=== PATIENT | female | born 1990 | race Caucasian/White ===

== ENCOUNTER 2019-07-01 01:27 | Observation (INO) | payer MEDICAID ==
[~2019-07-01] VITALS: Ht 160 cm; Wt 66.2 kg
[2019-07-01] MEDS ORDERED: PREN1TAB78 PO (02:21)
[2019-07-01] MEDS ORDERED: LACTATED RINGERS 1,000 ML IV NR (02:53)
[2019-07-01] MEDS ORDERED: LACTATED RINGERS 1,000 ML IV SCH (02:53)
[2019-07-01] MEDS: TERBUTALINE SULFATE 1MG/ML VIAL SUBCUT PRN ×2 (04:24→05:15)
== END 2019-07-01 07:10 | disposition home or self-care (01) ==
LOC: 8 EST LDRP 01:27
PROVIDERS: ADMIT Obstetrics & Gynecology; ATTEND Obstetrics & Gynecology
DX: O26.893 Other specified pregnancy related conditions, third trimester (principal); R10.9 Unspecified abdominal pain; M54.9 Dorsalgia, unspecified; Z3A.34 34 weeks gestation of pregnancy
CPT/HCPCS: 96372; 99281; G0378; J3105

== ENCOUNTER 2021-10-03 16:25 | Emergency (ER) | payer MEDICAID ==
[~2021-10-03] VITALS: Ht 157.5 cm; Wt 70.0 kg
[~2021-10-03 16:25] MED LIST: PREN1TAB78 PO
[2021-10-03] MEDS ORDERED: ACETAMINOPHEN 325MG TABLET PO PRN (16:45)
[2021-10-03 16:56] LABS: BASOPHILS % 0.8 % (0.0-2.0); HEMATOCRIT. 39.6 % (36.0-48.0); HEMOGLOBIN. 13.3 g/dL (12.0-16.0); LYMPHOCYTES % 26.7 % (20.0-50.0); MEAN CORPUSCULAR HEMOGLOBIN 29.1 pg (28.0-32.0); MEAN CORPUSCULAR VOLUME 86.4 fL (81.0-99.0); MEAN PLATELET VOLUME 6.9 fl (7.4-10.4); MONOCYTES % 6.2 % (2.0-8.0); NEUTROPHILS % 64.3 % (40.0-76.0); PLATELET 267 x1000/uL (130-400); RED BLOOD CELL COUNT 4.58 mill/uL (4.2-5.4); RED CELL DISTRIBUTION WIDTH 13.1 % (11.6-14.6)
[2021-10-03 17:12] LABS: CHLORIDE 106 mEq/L (98-107)
[2021-10-03 17:17] LABS: CLARITY URINE CLEAR (CLEAR); COLOR URINE YELLOW (YELLOW); KETONES URINE NEGATIVE (NEGATIVE); LEUKOCYTE ESTERASE URINE TRACE (NEGATIVE); NITRITE URINE NEGATIVE (NEGATIVE); OCCULT BLOOD URINE NEGATIVE (NEGATIVE); PROTEIN URINE NEGATIVE (NEGATIVE); SPECIFIC GRAVITY URINE 1.014 (1.005-1.030)
[2021-10-03 17:36] LABS: B-HCG QUANTITATIVE 5040 mIU/mL (<3)
[2021-10-03 20:50] VITALS: BP 116/70
== END 2021-10-03 21:00 | disposition home or self-care (01) ==
LOC: ER 16:25
DX: O26.891 Other specified pregnancy related conditions, first trimester (principal); M54.59 Other low back pain; O20.9 Hemorrhage in early pregnancy, unspecified; Z3A.09 9 weeks gestation of pregnancy
CPT/HCPCS: 36415; 76801; 76857; 80053; 81003; 84702; 85025; 86850; 86900; 99284

== ENCOUNTER 2021-10-05 17:00 | Emergency (ER) | payer MEDICAID ==
[~2021-10-05] VITALS: Ht 160 cm; Wt 75.0 kg
[2021-10-05 20:00] LABS: BASOPHILS % 0.9 % (0.0-2.0); EOSINOPHILS % 1.7 % (0.0-5.0); HEMATOCRIT. 40.9 % (36.0-48.0); HEMOGLOBIN. 13.9 g/dL (12.0-16.0); LYMPHOCYTES % 28.4 % (20.0-50.0); MEAN CORPUSCULAR HEMOGLOBIN 29.6 pg (28.0-32.0); MEAN CORPUSCULAR VOLUME 87.3 fL (81.0-99.0); MEAN PLATELET VOLUME 7.1 fl (7.4-10.4); MONOCYTES % 6.4 % (2.0-8.0); NEUTROPHILS % 62.6 % (40.0-76.0); PLATELET 248 x1000/uL (130-400); RED BLOOD CELL COUNT 4.68 mill/uL (4.2-5.4); RED CELL DISTRIBUTION WIDTH 12.7 % (11.6-14.6)
[2021-10-05 20:08] LABS: CHLORIDE 106 mEq/L (98-107)
[2021-10-05 20:30] LABS: B-HCG QUANTITATIVE 3967 mIU/mL (<3)
[2021-10-05 22:06] VITALS: BP 130/75
== END 2021-10-05 22:06 | disposition home or self-care (01) ==
LOC: ER 17:00
DX: O02.1 Missed abortion (principal)
CPT/HCPCS: 36415; 76801; 80053; 84702; 85025; 99284

== ENCOUNTER 2021-10-18 19:12 | Inpatient (IN) | payer MEDICAID ==
[~2021-10-18] VITALS: Ht 152.4 cm; Wt 67.8 kg
[2021-10-18] MEDS ORDERED: IBUPROFEN 400MG TABLET PO ONE (21:30)
[2021-10-18 21:42] LABS: BASOPHILS % 0.9 % (0.0-2.0); EOSINOPHILS % 2.3 % (0.0-5.0); HEMATOCRIT. 38.4 % (36.0-48.0); HEMOGLOBIN. 13.1 g/dL (12.0-16.0); LYMPHOCYTES % 31.4 % (20.0-50.0); MEAN CORPUSCULAR HEMOGLOBIN 29.6 pg (28.0-32.0); MEAN CORPUSCULAR VOLUME 86.7 fL (81.0-99.0); MEAN PLATELET VOLUME 7.1 fl (7.4-10.4); MONOCYTES % 7.4 % (2.0-8.0); PLATELET 269 x1000/uL (130-400); RED BLOOD CELL COUNT 4.43 mill/uL (4.2-5.4); RED CELL DISTRIBUTION WIDTH 12.8 % (11.6-14.6)
[2021-10-18 21:48] LABS: CHLORIDE 105 mEq/L (98-107)
[2021-10-18 21:53] LABS: PARTIAL THROMBOPLASTIN TIME 27.4 sec (23.4-31.0); PROTHROMBIN TIME 10.7 sec (9.6-11.0)
[2021-10-18 21:58] LABS: HCG SCREEN POSITIVE
[2021-10-18] MEDS ORDERED: ENOXAPARIN 80MG/0.8ML SYR SUBCUT ONE (23:15)
[2021-10-19] MEDS ORDERED: ONDANSETRON HCL 4MG/2ML INJ IV PRN (00:15)
[2021-10-19] MEDS ORDERED: ACETAMINOPHEN 325MG TABLET PO PRN (00:15)
[2021-10-19] MEDS: ENOXAPARIN 80MG/0.8ML SYR SUBCUT SCH ×2 (01:30→14:50)
[2021-10-19 11:00] VITALS: BP 124/67
[2021-10-19 11:56] VITALS: BP 124/67
[2021-10-19] MEDS: ACETAMINOPHEN 325MG TABLET PO PRN ×2 (12:21→21:11)
[2021-10-19] MEDS ORDERED: PNEUMOCOCCAL 23-VAL P-SAC VAC 0.5 ML IM ONE (15:00)
[2021-10-19 16:00] VITALS: BP 108/55
[2021-10-19 20:00] VITALS: BP 130/77
[2021-10-20] VITALS: BP 114/60
[2021-10-20] MEDS: ENOXAPARIN 80MG/0.8ML SYR SUBCUT SCH ×2 (02:06→14:21)
[2021-10-20 04:00] VITALS: BP 114/60
[2021-10-20 08:00] VITALS: BP 110/58
[2021-10-20 12:00] VITALS: BP 115/60
[2021-10-20] MEDS ORDERED: XAR15 PO (14:23)
[2021-10-20] MEDS ORDERED: IBUP-2028 PO (14:23)
[2021-10-20] MEDS ORDERED: RIVA20TA PO (14:23)
[2021-10-20 15:20] VITALS: BP 115/50
== END 2021-10-20 16:26 | disposition home or self-care (01) | DRG 566 ==
LOC: ER 19:12 → MICUSO 10-19 00:05 → SUPCPDRO 10-19 00:06 → 6EST 10-19 10:46
PROVIDERS: ADMIT Internal Medicine; ATTEND Internal Medicine
DX: O22.31 Deep phlebothrombosis in pregnancy, first trimester (principal); I82.A12 Acute embolism and thrombosis of left axillary vein; I82.612 Acute embolism and thrombosis of superficial veins of left upper extremity; Z79.899 Other long term (current) drug therapy; Z98.891 History of uterine scar from previous surgery; Z3A.00 Weeks of gestation of pregnancy not specified
CPT/HCPCS: 36415; 73080; 80053; 84702; 84703; 85025; 90732; 93005; 93971; 99285; J1650

== ENCOUNTER 2024-09-05 15:04 | Emergency (ER) | payer SELFPAY ==
[~2024-09-05] VITALS: Ht 165.1 cm; Wt 69.0 kg
[~2024-09-05 15:04] MED LIST changes: +IBUP-2028 PO; +RIVA20TA PO; +XAR15 PO
[2024-09-05 15:13] VITALS: O2SAT 98
[2024-09-05 15:45] LABS: BASOPHILS % 0.6 % (0.0-2.0); EOSINOPHILS % 0.7 % (0.0-5.0); HEMATOCRIT. 40.3 % (36.0-48.0); HEMOGLOBIN. 13.6 g/dL (12.0-16.0); LYMPHOCYTES % 15.5 % (20.0-50.0); MEAN CORPUSCULAR HEMOGLOBIN 29.8 pg (28.0-32.0); MEAN CORPUSCULAR HGB CONC 33.9 g/dL (31.0-37.0); MEAN PLATELET VOLUME 7.6 fl (7.4-10.4); MONOCYTES % 5.4 % (2.0-8.0); NEUTROPHILS % 77.8 % (40.0-76.0); PLATELET 274 x1000/uL (130-400); RED BLOOD CELL COUNT 4.57 mill/uL (4.2-5.4); RED CELL DISTRIBUTION WIDTH 12.5 % (11.6-14.6); WHITE BLOOD COUNT 10.6 x1000/uL (4.5-11.0)
[2024-09-05 15:52] LABS: CHLORIDE 104 mEq/L (98-107); POTASSIUM 3.5 mEq/L (3.5-5.1); SODIUM 141 mEq/L (136-145)
[2024-09-05 15:53] LABS: CALCIUM 9.8 mg/dL (8.7-10.4); CARBON DIOXIDE 26 mEq/L (21-32)
[2024-09-05 15:58] LABS: CREATININE 0.6 mg/dL (0.6-1.0); GLUCOSE 103 mg/dL (70-105); UREA NITROGEN BLOOD 7 mg/dL (9-23)
[2024-09-05 16:00] LABS: ALANINE AMINOTRANSFERASE 18 IU/L (10-49); ALBUMIN 4.5 g/dL (3.2-4.8); ASPARTATE AMINOTRANSFERASE 19 IU/L (<34); BILIRUBIN DIRECT 0.2 mg/dL (<=3.0)
[2024-09-05 16:01] LABS: BILIRUBIN TOTAL 0.6 mg/dL (0.1-1.0); PROTEIN TOTAL 7.7 g/dL (6.0-8.3)
[2024-09-05] MEDS: SODIUM CHLORIDE 0.9% 1,000 ML IV ONE (17:01)
[2024-09-05 17:24] LABS: CLARITY URINE TURBID (CLEAR); COLOR URINE YELLOW (YELLOW); GLUCOSE URINE NEGATIVE (NEGATIVE); KETONES URINE NEGATIVE (NEGATIVE); LEUKOCYTE ESTERASE URINE 3+ (NEGATIVE); NITRITE URINE NEGATIVE (NEGATIVE); OCCULT BLOOD URINE 3+ (NEGATIVE); PH URINE 5.5 (4.5-8.0); PROTEIN URINE TRACE (NEGATIVE); SPECIFIC GRAVITY URINE 1.013 (1.005-1.030); UROBILINOGEN URINE 0.2 E.U./dL (0.2-1.0)
[2024-09-05 17:53] LABS: WBC URINE TNTC /hpf (0-2)
[2024-09-05 17:54] LABS: BACTERIA URINE TRACE; SQUAMOUS EPITHELIAL CELL URINE FEW /lpf (RARE/1+)
[2024-09-05] MEDS ORDERED: IBUP-2028 MT (18:10)
[2024-09-05] MEDS ORDERED: CEPH500C2 MT (18:10)
[2024-09-05 18:25] VITALS: BP 114/64; PULSE 75; RESP 21; TEMP 36.9; O2SAT 98
== END 2024-09-05 18:39 | disposition home or self-care (01) ==
LOC: ER 15:04
DX: N39.0 Urinary tract infection, site not specified (principal); N93.9 Abnormal uterine and vaginal bleeding, unspecified; Z98.890 Other specified postprocedural states; Z79.899 Other long term (current) drug therapy
CPT/HCPCS: 99284; 96360; 96361; 80076; 80048; 81003; 81025; 84702; 85025; 86850; 86900; 86901; 87086; 87186; 87077; 36415; J7030